=== PATIENT | female | born 1950 | race Caucasian/White ===

== ENCOUNTER → 2019-06-02 | Outpatient (CLI) | payer OTHER ==
--- NOTE | 2019-06-02 12:27 | Diagnostic Imaging Report ---
Thyroid ultrasound CPT code: 63815 History: Hypothyroidism Comparison: None Findings: The thyroid echotexture is mildly heterogeneous. Vascularity is normal. The right lobe measures 4.7 x 2.3 x 2.3 cm. The left lobe measures 3.7 x 1.5 x 1.2 cm. The isthmus measures 0.3 cm. Nodules (measurements are AP, transverse, craniocaudal): Right Lobe: Interpolar isoechoic well-circumscribed 2.8 x 2.1 x 2.4 cm predominantly solid, wider than tall nodule without internal calcifications. Left Lobe: No focal nodule. Isthmus: No cystic mass or discrete solid nodule identified. Lymph Nodes: No abnormal cervical lymph nodes are identified. Parathyroids: Not visualized. IMPRESSION: Isoechoic right thyroid nodule measuring up to 2.8cm is mildly suspicious (TI-RADS 3). Recommend FNA due to size greater than 2.5cm. ACR glossary of thyroid rads TI-RADS 1: No focal lesion. TI-RADS 2: Not suspicious. TI-RADS 3: Mildly suspicious (recommend FNA is greater than or equal to 2.5 cm; follow-up at 1, 3, and 5 years if greater than or equal to 1.5 cm) TI-RADS 4: Moderately Suspicious (recommend FNA is greater than or equal to 1.5 cm; follow-up at 1, 2, 3, and 5 years) TI-RADS 5: Highly suspicious (recommend FNA is greater than or equal to 10 mm) TI-RADS 6: Biopsy-proven malignancy Signed by: Hans Madrigal MD on 06/02/2019 12:24 PM
== END ==
LOC: US 11:15
PROVIDERS: ATTEND Internal Medicine
DX: E03.9 Hypothyroidism, unspecified (principal)
CPT/HCPCS: 76536

== ENCOUNTER 2019-10-08 12:41 | Emergency (ER) | payer OTHER ==
[~2019-10-08] VITALS: Ht 170.2 cm; Wt 137.0 kg
--- OUTSIDE RECORDS SUMMARY | 2019-10-08 12:43 | XMS REPORT ---
[facility] Address Unknown Phone Unavailable Care Team Providers Care Clinical Data Coordinator Name Role Phone Alf SANCHEZ Unavailable Unavailable Problems This patient has no known problems. Allergies, Adverse Reactions, Alerts This patient has no known allergies or adverse reactions. Medications This patient has no known medications. Results Test Description Test Time Test Comments Text Results Atomic Results Result Comments THYROID 2019 12:21:00 [place] [id number] Patient Name: MAURICE DISLA MR #: [id number] : 1950 Age/Sex: 69/F Req #: [id number] [facility] Physician: Ordered by: SUSHANT SANCHEZ M.D. Report #: [id number] Location: Room/Bed: Procedure: [id number] US/US THYROID Exam Date: 06/02/19 Exam Time: 1153 REPORT STATUS: Signed Thyroid ultrasound CPT code: 42565 History: Hypothyroidism Comparison: None Findings: The thyroid echotexture is mildly heterogeneous. Vascularity is normal. The right lobe measures 4.7 x 2.3 x 2.3 cm. The left lobe measures 3.7 x 1.5 x 1.2 cm. The isthmus measures 0.3 cm. Nodules (measurements are AP, transverse, craniocaudal): Right Lobe: Interpolar isoechoic well-circumscribed 2.8 x 2.1 x 2.4 cm predominantly solid, wider than tall nodule without internal calcifications. Left Lobe: No focal nodule. Isthmus: No cystic mass or discrete solid nodule identified. Lymph Nodes: No abnormal cervical lymph nodes are identified. Parathyroids: Not visualized. IMPRESSION: Isoechoic right thyroid nodule measuring up to 2.8cm is mildly suspicious (TI-RADS 3). Recommend FNA due to size greater than 2.5cm. ACR glossary of thyroid rads TI- RADS 1: No focal lesion. TI-RADS 2: Not suspicious. TI-RADS 3: Mildly suspicious (recommend FNA is greater than or equal to 2.5 cm; follow-up at 1, 3, and 5 years if greater than or equal to 1.5 cm) TI-RADS 4: Moderately Suspicious (recommend FNA is greater than or equal to 1.5 cm; follow-up at 1, 2, 3, and 5 years) TI-RADS 5: Highly suspicious (recommend FNA is greater than or equal to 10 mm) TI-RADS 6: Biopsy-proven malignancy Signed by: Adam Madrigal MD on 2019 12:24 PM Dictated By: ADAM MADRIGAL MD E lectronically Signed By: ADAM MADRIGAL MD on 06/02/19 1224 Transcribed By: DARWIN on 06/02/19 1224 COPY TO: SUSHANT SANCHEZ M.D.
[2019-10-08] MEDS ORDERED: RABIES VAC,PF CHICK-EMB CELL 2.5/KIT IM ONE (13:00)
[2019-10-08] MEDS ORDERED: RABIES IMMUNE GLOBULIN/PF 150 UNIT/ML VIAL IM ONE (13:00)
--- NOTE | 2019-10-08 14:41 | NUR ---
SPOKE WITH PHARMACY AND [facility] [employer]. THEY ARE LOOKING FOR VACCINE FOR PATIENT
--- NOTE | 2019-10-08 15:35 | NUR ---
DR. DENIS AT BEDSIDE ADMINISTERING IMMUNOGLOBULIN
== END 2019-10-08 16:11 | disposition home or self-care (01) ==
LOC: ER 12:41
DX: S80.871A Other superficial bite, right lower leg, initial encounter (principal); W55.51XA Bitten by raccoon, initial encounter; Y92.007 Garden or yard of unspecified non-institutional (private) residence as the place of occurrence of the external cause
CPT/HCPCS: 99283

== ENCOUNTER → 2021-01-16 | Outpatient (CLI) | payer OTHER | LOC: US 14:44 | PROVIDERS: ATTEND Internal Medicine | DX: E04.1 Nontoxic single thyroid nodule (principal) | CPT/HCPCS: 76536 ==

== ENCOUNTER → 2021-11-07 | Outpatient (CLI) | payer BC | LOC: US 14:04 | PROVIDERS: ATTEND Internal Medicine | DX: E04.1 Nontoxic single thyroid nodule (principal) | CPT/HCPCS: 76536 ==

== ENCOUNTER → 2024-04-14 | Outpatient (REF) | payer OTHER | LOC: US 12:41 | PROVIDERS: ATTEND Internal Medicine | DX: E04.1 Nontoxic single thyroid nodule (principal) | CPT/HCPCS: 76536 ==

== ENCOUNTER → 2025-02-17 | Outpatient (REF) | payer MEDICARE | LOC: US 13:45 | PROVIDERS: ATTEND Internal Medicine | DX: E04.1 Nontoxic single thyroid nodule (principal) | CPT/HCPCS: 76536 ==